=== PATIENT | female | born 1960 | race Caucasian/White ===

== ENCOUNTER 2019-03-10 09:42 | Observation (INO) ==
[2019-03-10] MEDS ORDERED: *HR* Promethazine 25 MG/ML VIAL IM ONE (10:08)
[2019-03-10] MEDS ORDERED: Ketorolac 30 MG/ML VIAL IM ONE (10:08)
[2019-03-10] MEDS ORDERED: *HR* FentaNYL (PF) 100 MCG/2 ML VIAL IM ONE (10:08)
--- NOTE | 2019-03-10 10:10 | Emergency Department Note ---
Disposition Clinical Impression: Renal colic, bilateral, Pyelonephritis Disposition: Admitted As Inpatient Condition: Good Time of Disposition: 12:56 General Adult HPI - General Chief complaint: ED Abdominal Pain Stated complaint: "kidney stones" Time Seen by Provider: 03/10/19 10:07 Source: patient Mode of arrival: ambulatory Limitations: no limitations Nursing Notes Reviewed: Yes Vital Signs Reviewed: Yes - History of Present Illness HPI Narrative: 58-year-old female with history of multiple kidney stents who presents emergency Department with complaints of when a half weeks' time of bilateral flank pain. The patient states she thinks she passed multiple kidney stones over the last week. She has attempted to get in with urology but has been unsuccessful. The patient notes that she continues to have straining with urination and feels burning with urination and is concerned she has an obstructing stone at this time. She has previously required basket retreival and lithotripsy. She otherwise notes nausea and flank pain and some episodes of vomiting but denies any fever, chest pain, shortness of breath, diarrhea. Pain Scale: 4 - Related Data Home Medications Medication Instructions Recorded Confirmed Albuterol Sulfate [Proventil 90 mcg IH Q4HR PRN 10/25/15 03/10/19 Inhaler] Biotin [Ian Biotin] 10,000 mcg PO 1700 10/25/15 03/10/19 Cetirizine HCl [Zyrtec] 10 mg PO 1700 PRN 10/25/15 03/10/19 Citalopram [CeleXA] 30 mg PO 1700 10/25/15 03/10/19 SUMAtriptan Succinate [Imitrex] 100 mg PO AD PRN 10/25/15 03/10/19 amLODIPine [Norvasc] 5 mg PO 1700 10/25/15 03/10/19 Gabapentin [Neurontin] 300 mg PO 1700 PRN 03/10/19 03/10/19 Multivitamin [One Daily 1 tab PO 1700 03/10/19 03/10/19 Multivitamin] Rosuvastatin Calcium [Crestor] 20 mg PO QAM 03/10/19 03/10/19 Turmeric Root Extract [Turmeric 500 mg PO 1700 03/10/19 03/10/19 Curcumin] Allergies Allergy/AdvReac Type Severity Reaction Status Date / Time prochlorperazine AdvReac burning Verified 03/10/19 13:51 [From Compazine] urination anesthesia AdvReac Vomiting Uncoded 03/10/19 13:51 Review of Systems: ROS per history of present illness, all other systems reviewed and negative or normal. All systems ED: reviewed and negative except as stated. Review of Systems: As Per HPI Past Medical History - Past Medical History Medical history: Reports: asthma, hyperlipidemia, hypertension, kidney stones, migraine Surgical history: Reports: knee replacement, orthopedic, other, other Psychiatric history: Reports: anxiety, depression - Social History Smoking Status: Never smoker Smokeless Tobacco Status: No Alcohol use: Reports: none Drug use: Reports: none Physical Exam General: Conversant. No apparent distress. Follow commands. Appears stated age. Neck: No JVD. Trachea midline. Neck supple. Eyes: PERRL. No scleral icterus. HENT: Normocephalic and atraumatic. Moist mucus membranes. Cardiovascular: Regular rate and rhythm. Normal S1 and S2. No murmurs appreciated. Normal capillary refill. Extremities well perfused with 2+ distal pulses bilaterally. No edema. Pulmonary: Normal and equal breath sounds bilaterally, anteriorly and posteriorly. No wheezes, rales, or rhonchi. Not in respiratory distress. Speaks in full sentences. Abdomen: Soft, nondistended. Diffuse tenderness. There is bilateral CVA tenderness. No rigidity or guarding. No rash on the flank. Neuro: Alert and oriented x3. No slurred speech. No focal deficits noted. Skin: No rashes noted on visualized skin. Musculoskeletal: No bony abnormalities visualized. Moves all extremities. Psych: Normal mood. Pleasant. Makes appropriate eye contact. Course Vital Signs Temperature 98.1 F 03/10/19 10:02 Pulse Rate 80 03/10/19 10:02 Respiratory Rate 16 03/10/19 10:02 Blood Pressure 118/87 03/10/19 10:02 O2 Sat by Pulse Oximetry 94 03/10/19 10:02 Temperature 98.0 F 03/10/19 18:56 Pulse Rate 74 03/10/19 18:56 Respiratory Rate 16 03/10/19 18:56 Blood Pressure 138/86 03/10/19 18:56 O2 Sat by Pulse Oximetry 96 03/10/19 18:56 Oxygen Delivery Oxygen Delivery Room Air Medical Decision Making - [facility] Narrative Medical decision making narrative: 58-year-old female with history of multiple kidney stents who presents the emergency department with plans of bilateral flank pain. The patient also notes burning with urination and passage of multiple stones. On arrival patient has no fever, not tachycardic, not hypotensive. The patient has bilateral CVA tenderness. X-ray evaluation shows no significant leukocytosis, anemia or acute kidney injury. CT abdomen/pelvis shows bilateral nonobstructing stones with no hydronephrosis. There is mild perinephric stranding in the left kidney from prior. Urinalysis does show evidence of urinary tract infection. Given concern for pyelonephritis the patient was given IV Rocephin here in the emergency department. She has not been able to tolerate by mouth and feels that she has failed outpatient management therefore she was admitted here to the hospital. Discussed case with on-call hospitalist Dr. Nayak who agrees with plan for admission and accepts the patient to the inpatient service. Patient agrees with and understands course of treatment plan including plan for admission. All questions answered. - Medical Records Medical records reviewed: Yes I reviewed the patient's medical records. - Lab Data Lab results reviewed: Yes I reviewed the patient's lab results. Result diagrams: 03/10/19 10:40 03/10/19 10:40 Lab Results 03/10/19 03/10/19 03/10/19 Range/Units 10:21 10:21 10:40 WBC 7.6 (4.3-11.1) K/mcL RBC 4.82 (3.82-4.97) M/mcL Hgb 14.5 (11.5-15.4) g/dL Hct 43.9 (35.3-44.9) % MCV 91.1 (83.0-100.0) fL MCH 30.1 (28.0-33.3) pg MCHC 33.0 (31.6-35.5) g/dL RDW 13.3 (11.5-14.5) % Plt Count 206 (140-400) K/mcL MPV 10.7 (9.4-12.4) fL Immature Gran % 0.4 (0-4) % Seg Neutrophils % 59.6 % Lymphocytes % 21.5 % Monocytes % 15.9 % Eosinophils % 1.9 % Basophils % 0.7 % Neutrophils # 4.5 (1.6-8.9) K/mcL Lymphocytes # 1.6 (0.6-4.6) K/mcL Monocytes # 1.2 (0.0-1.3) K/mcL Eosinophils # 0.1 (0.0-0.6) K/mcL Basophils # 0.1 (0.0-0.2) K/mcL Sodium (136-145) mEq/L Potassium (3.5-5.1) mEq/L Chloride (98-107) mEq/L Carbon Dioxide (23-29) mEq/L BUN (6-20) mg/dL Creatinine (0.60-1.20) mg/dL Est GFR ( Amer) (> 60) Est GFR (Non-Af Amer) (> 60) BUN/Creatinine Ratio (6-26) Glucose (70-105) mg/dL Calculated Osmolality (280-300) Calcium (8.6-10.3) mg/dL Urine Color Yellow (Yellow) Urine Clarity Slightly Cloudy A (Clear) Urine pH 5.5 (5.0-8.0) pH Units Ur Specific [place] 1.020 (1.010-1.025) Urine Protein 100 H (Neg-Trace) mg/dL Urine Glucose (UA) Normal (Normal) mg/dL Urine Ketones Negative (Negative) mg/dL Urine Blood Moderate H (Negative) Urine Nitrite Positive A (Negative) Urine Bilirubin Negative (Negative) Urine Urobilinogen Normal (Normal) mg/dL Ur Leukocyte Esterase Large H (Negative) Urine Microscopic RBC 5-15 H (0-3) per hpf Urine Microscopic WBC 50-100 H (0-3) per hpf Ur Squamous Epith Cells Few (None-Few) per lpf Ur Renal Epithelial Cell Few (None-Few) per hpf Urine Bacteria Moderate H (None-Few) per hpf Ur Culture Indicated? YES A (NO) Urine Test Negative (Negative) 03/10/19 Range/Units 10:40 WBC (4.3-11.1) K/mcL RBC (3.82-4.97) M/mcL Hgb (11.5-15.4) g/dL Hct (35.3-44.9) % MCV (83.0-100.0) fL MCH (28.0-33.3) pg MCHC (31.6-35.5) g/dL RDW (11.5-14.5) % Plt Count (140-400) K/mcL MPV (9.4-12.4) fL Immature Gran % (0-4) % Seg Neutrophils % % Lymphocytes % % Monocytes % % Eosinophils % % Basophils % % Neutrophils # (1.6-8.9) K/mcL Lymphocytes # (0.6-4.6) K/mcL Monocytes # (0.0-1.3) K/mcL Eosinophils # (0.0-0.6) K/mcL Basophils # (0.0-0.2) K/mcL Sodium 137 (136-145) mEq/L Potassium 3.5 (3.5-5.1) mEq/L Chloride 101 (98-107) mEq/L Carbon Dioxide 25 (23-29) mEq/L BUN 8 (6-20) mg/dL Creatinine 0.84 (0.60-1.20) mg/dL Est GFR ( Amer) > 60 (> 60) Est GFR (Non-Af Amer) > 60 (> 60) BUN/Creatinine Ratio 10 (6-26) Glucose 118 H (70-105) mg/dL Calculated Osmolality 283 (280-300) Calcium 9.1 (8.6-10.3) mg/dL Urine Color (Yellow) Urine Clarity (Clear) Urine pH (5.0-8.0) pH Units Ur Specific [place] (1.010-1.025) Urine Protein (Neg-Trace) mg/dL Urine Glucose (UA) (Normal) mg/dL Urine Ketones (Negative) mg/dL Urine Blood (Negative) Urine Nitrite (Negative) Urine Bilirubin (Negative) Urine Urobilinogen (Normal) mg/dL Ur Leukocyte Esterase (Negative) Urine Microscopic RBC (0-3) per hpf Urine Microscopic WBC (0-3) per hpf Ur Squamous Epith Cells (None-Few) per lpf Ur Renal Epithelial Cell (None-Few) per hpf Urine Bacteria (None-Few) per hpf Ur Culture Indicated? (NO) Urine Test (Negative) - Radiology Data Radiology results reviewed: Yes I reviewed the patient's radiology results. Abdomen/Pelvis CT 03/10/19 10:28 IMPRESSION: Bilateral nonobstructing renal calculi of varying size. No hydronephrosis. Slight to mild perinephric stranding about the left kidney new from the prior study. No ureteral calculus. Fibroid uterus unchanged. Sigmoid diverticulosis without diverticulitis. D/ / Julian Allan MD / Julian Allan MD Interpreting Provider: Julian Allan MD Attestation Statement - Attestation Attestation: I, Juancarlos Lawrence, examined this patient and my medical decision-making was reviewed with the INTERNIST MEDICAL DOCTOR MD/PA/Advanced Practice Nurse/Resident Physician. I agree with the documented findings, disposition and treatment plan as described except to the extent set forth below. 58-year-old female presents emergency department for evaluation of possible kidney stones. Patient reports she has a history of kidney stones and likely pass on over the past week. She now reports bilateral flank pain. On physical exam she has CVA tenderness on the right. Urinalysis shows urinary tract infection. CT does not show an obstructing stone however she does have perinephric stranding. Patient will be admitted as possible pyelonephritis. She states she has been unable not tolerating by mouth intake well over the past few days. Patient given antibiotics in the emergency department.
[2019-03-10] MEDS ORDERED: Ondansetron 4 MG/2 ML VIAL IVP ONE (10:28)
[2019-03-10] MEDS ORDERED: Ketorolac 15 MG/ML VIAL IVP ONE (10:28)
[2019-03-10] MEDS ORDERED: 0.9 % Sodium Chloride 1,000 ML IVC STA (10:28)
[2019-03-10 10:42] LABS: Bilirubin,Urine Negative (Negative); Blood,Urine Moderate (Negative); Clarity,Urine Slightly Cloudy (Clear); Color,Urine Yellow (Yellow); Glucose,Urine (UA) Normal (Normal); Ketones,Urine Negative (Negative); Leukocyte Esterase,Urine Large (Negative); Nitrite,Urine Positive (Negative); PH,Urine 5.5 pH Units (5.0-8.0); Protein,Urine 100 mg/dL (Neg-Trace); Urobilinogen,Urine Normal (Normal)
[2019-03-10 10:54] LABS: Squamous Epithelial Cell,Urine Few per lpf (None-Few); WBC,Urine 50-100 per hpf (0-3)
[2019-03-10 10:55] LABS: Bacteria,Urine Moderate per hpf (None-Few); Renal Epithelial Cells,Urine Few per hpf (None-Few)
[2019-03-10 11:12] LABS: Basophils # 0.1 K/mcL (0.0-0.2); Basophils % 0.7 %; Eosinophils # 0.1 K/mcL (0.0-0.6); Eosinophils % 1.9 %; Hematocrit 43.9 % (35.3-44.9); Hemoglobin 14.5 g/dL (11.5-15.4); Immature Granulocytes % 0.4 % (0-4); Lymphocytes # 1.6 K/mcL (0.6-4.6); Lymphocytes % 21.5 %; Mean Corpuscular Hemoglobin 30.1 pg (28.0-33.3); Mean Corpuscular Volume 91.1 fL (83.0-100.0); Mean Platelet Volume 10.7 fL (9.4-12.4); Monocytes # 1.2 K/mcL (0.0-1.3); Monocytes % 15.9 %; Neutrophils # 4.5 K/mcL (1.6-8.9); Platelet Count 206 K/mcL (140-400); Red Blood Count 4.82 M/mcL (3.82-4.97); Red Cell Distribution Width 13.3 % (11.5-14.5); Segmented Neutrophils % 59.6 %; White Blood Count 7.6 K/mcL (4.3-11.1)
[2019-03-10 11:29] LABS: BUN/Creatinine Ratio 10 (6-26); Blood Urea Nitrogen 8 mg/dL (6-20); Calcium 9.1 mg/dL (8.6-10.3); Carbon Dioxide 25 mEq/L (23-29); Chloride 101 mEq/L (98-107); Glucose 118 mg/dL (70-105); Osmolality,Calculated 283 (280-300); Potassium 3.5 mEq/L (3.5-5.1); Sodium 137 mEq/L (136-145); eGFR For African Americans > 60 (> 60); eGFR For Non-African Americans > 60 (> 60)
[2019-03-10] MEDS ORDERED: Morphine Sulfate Immed Rel 30 MG TABLET PO ONE (12:23)
[2019-03-10] MEDS ORDERED: cefTRIAXone 1,000 MG in Water for inj. (sterile) 10 ML IVP ONE (13:07)
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
[2019-03-10] MEDS ORDERED: *HR* OxyCODONE Immed Rel 5 MG TABLET PO PRN (13:58)
[2019-03-10] MEDS ORDERED: Acetaminophen 325 MG TABLET PO PRN (13:58)
[2019-03-10] MEDS ORDERED: Naloxone 0.4 MG/ML INJ IVP PRN (13:58)
[2019-03-10] MEDS ORDERED: Ondansetron 4 MG/2 ML VIAL IVP PRN (13:58)
[2019-03-10] MEDS: *HR* Heparin 5,000 UNIT/ML VIAL SQ SCH (18:18)
[2019-03-10] MEDS: *HR* HYDROcodone/Acet 5/325 mg TABLET PO PRN (21:16)
[2019-03-11 05:51] LABS: Basophils # 0.1 K/mcL (0.0-0.2); Eosinophils # 0.2 K/mcL (0.0-0.6); Eosinophils % 2.6 %; Hematocrit 39.7 % (35.3-44.9); Immature Granulocytes % 0.3 % (0-4); Lymphocytes # 1.5 K/mcL (0.6-4.6); Lymphocytes % 24.3 %; Mean Corpuscular HGB Conc 32.5 g/dL (31.6-35.5); Mean Corpuscular Hemoglobin 30.1 pg (28.0-33.3); Mean Corpuscular Volume 92.8 fL (83.0-100.0); Mean Platelet Volume 10.8 fL (9.4-12.4); Monocytes # 0.9 K/mcL (0.0-1.3); Monocytes % 14.2 %; Neutrophils # 3.6 K/mcL (1.6-8.9); Platelet Count 192 K/mcL (140-400); Red Blood Count 4.28 M/mcL (3.82-4.97); Red Cell Distribution Width 13.2 % (11.5-14.5); Segmented Neutrophils % 57.6 %; White Blood Count 6.3 K/mcL (4.3-11.1)
[2019-03-11 05:52] LABS: Hemoglobin 12.9 g/dL (11.5-15.4)
[2019-03-11] MEDS: *HR* Heparin 5,000 UNIT/ML VIAL SQ SCH (05:55)
[2019-03-11 06:14] LABS: BUN/Creatinine Ratio 11 (6-26); Blood Urea Nitrogen 8 mg/dL (6-20); Calcium 8.8 mg/dL (8.6-10.3); Carbon Dioxide 24 mEq/L (23-29); Chloride 104 mEq/L (98-107); Glucose 106 mg/dL (70-105); Magnesium 2.2 mg/dL (1.6-2.6); Osmolality,Calculated 289 (280-300); Potassium 3.4 mEq/L (3.5-5.1); Sodium 140 mEq/L (136-145); eGFR For African Americans > 60 (> 60); eGFR For Non-African Americans > 60 (> 60)
[2019-03-11] MEDS: *HR* HYDROcodone/Acet 5/325 mg TABLET PO PRN (10:11)
[2019-03-11] MEDS ORDERED: 0.9 % Sodium Chloride 1,000 ML IVC SCH (10:45)
[2019-03-11 11:16] VITALS: BP 108/76
[2019-03-11] MEDS ORDERED: cefTRIAXone 1,000 MG in Water for inj. (sterile) 10 ML IVP SCH (12:00)
[2019-03-11] MEDS ORDERED: cefTRIAXone 1,000 MG in Water for inj. (sterile) 10 ML IVP ONE (12:56)
--- NOTE | 2019-03-11 13:54 | Discharge Summary ---
- NOTES TO OUTPATIENT PROVIDER Notes to Outpatient Provider: hx of kidney stones passed a kidney stone on 03/09/2019 - we will need follow-up with urology culture preliminary grew gram- negative rods we will continue with Omnicef Orders not resulted at time of discharge: Pending orders 03/10/19 10:21 Culture,Urine [RM] Stat Date of Encounter: 03/11/19 Time of Encounter: 13:51 - Discharge Diagnosis (1) Nephrolithiasis Priority: Primary Status: Acute (2) HTN (hypertension) Priority: Secondary Status: Chronic Qualifiers: Hypertension type: essential hypertension Qualified Code(s): I10 - Essential (primary) hypertension (3) HLD (hyperlipidemia) Priority: Secondary Status: Chronic Qualifiers: Hyperlipidemia type: mixed hyperlipidemia Qualified Code(s): E78.2 - Mixed hyperlipidemia (4) Acute pyelonephritis Priority: Primary Status: Acute Hospital course: Ms. Gautam is a 58 year old female astragal history of hypertension hyperlipidemia kidney stones presented with complaints of flank pain starting 03/01/19 she states that flank pain with bilaterally consistent with history of previous kidney stone. She did pass a stone later that day however her symptoms continue to persist. On presentation she had flank pain and nausea and decreased appetite urinary frequency and urgency. Patient did complain of subjective fevers and sweats prior to presentation. She underwent a CT of her abdomen which showed slight mild stranding around the left kidney unchanged fibroid uterus and diverticulosis. Initiated on Rocephin as well as pain medications and IV fluids. Overnight she did not have any fevers no white count today she was able to tolerate oral intake. Patient states that urinary symptoms have improved denies any hematuria. Preliminary culture grew gram- negative rods Patient will be discharged home with 7 day course of Omnicef- advised patient to follow-up with PCP as well as urology as outpatient. Patient verbalizes understanding currently she is hemodynamically stable this time and ready for discharge. - Time Spent with Patient Total time spent providing and/or coordinating discharge services: - Discharge Medications Prescriptions: New Cefdinir [Omnicef] 300 mg PO BID 7 Days #14 capsule Continued Citalopram [CeleXA] 30 mg PO 1700 amLODIPine [Norvasc] 5 mg PO 1700 Albuterol Sulfate [Proventil Inhaler] 90 mcg IH Q4HR PRN PRN Reason: Shortness Of Breath Cetirizine HCl [Zyrtec] 10 mg PO 1700 PRN PRN Reason: Allergy Symptoms SUMAtriptan Succinate [Imitrex] 100 mg PO AD PRN PRN Reason: Migraine Headache Biotin [Ian Biotin] 10,000 mcg PO 1700 Multivitamin [One Daily Multivitamin] 1 tab PO 1700 Rosuvastatin Calcium [Crestor] 20 mg PO QAM Turmeric Root Extract [Turmeric Curcumin] 500 mg PO 1700 Gabapentin [Neurontin] 300 mg PO 1700 PRN PRN Reason: SHOULDER PAIN Home Medications: Albuterol Sulfate [Proventil Inhaler] 90 mcg IH Q4HR PRN 10/25/15 [History] Biotin [Ian Biotin] 10,000 mcg PO 1700 10/25/15 [History] Cetirizine HCl [Zyrtec] 10 mg PO 1700 PRN 10/25/15 [History] Citalopram [CeleXA] 30 mg PO 1700 10/25/15 [History] SUMAtriptan Succinate [Imitrex] 100 mg PO AD PRN 10/25/15 [History] amLODIPine [Norvasc] 5 mg PO 1700 10/25/15 [History] Gabapentin [Neurontin] 300 mg PO 1700 PRN 03/10/19 [History] Multivitamin [One Daily Multivitamin] 1 tab PO 1700 03/10/19 [History] Rosuvastatin Calcium [Crestor] 20 mg PO QAM 03/10/19 [History] Turmeric Root Extract [Turmeric Curcumin] 500 mg PO 1700 03/10/19 [History] Cefdinir [Omnicef] 300 mg PO BID 7 Days #14 capsule 03/11/19 [Rx] Allergies/Adverse Reactions: Allergy/AdvReac Type Severity Reaction Status Date / Time prochlorperazine AdvReac burning Verified 03/10/19 13:51 [From Compazine] urination anesthesia AdvReac Vomiting Uncoded 03/10/19 13:51 Date of admission: 03/10/19 13:34 Primary care physician: Anila Mcneal [employer] Discharging clinician: Mohini Jimenez Anticipated date of discharge: 03/11/19 - Constitutional Vitals: Temp Pulse Resp BP Pulse Ox 97.7 F 58 16 108/76 91 03/11/19 11:11 03/11/19 11:11 03/11/19 11:11 03/11/19 11:11 03/11/19 11:11 Exam: Gen.: Vitals noted. No acute distress. AAOx3, resting comfortably in bed. HEENT: PERRL/EOMI, oropharynx clear, Normocephalic, atraumatic, MMM Cardiac: RRR, no murmur, +S1/S2, Trace BLE edema Pulmonary: CTA bilaterally, no wheezes, rales or rhonchi, equal chest expansion, unlabored breathing Abdomen: soft, mild tenderness to palpation Back: Mild tenderness CVA bilaterally Skin: warm and dry, no visible lesions. MSK: ROM intact, no joint swelling noted, gait no assessed while in bed. Non tender calf or clubbing Neuro: A&Ox3, moves all extremities, no focal deficits, sensation intact, Psych: Appropriate mood and behavior, AOx3 - Patient Status Disposition: Home, Self-Care Condition: Good Functional capacity at discharge: independent ambulation Overall status at discharge: patient is back to baseline - Discharge Instructions Instructions: Urinary Tract Infection in Women (DC) Follow Up With: Anila Mcneal, [employer] [Primary Care Provider] - - Diet and Activity Activity: increase activity as tolerated Diet: advance to your usual diet
== END 2019-03-11 15:58 | disposition home or self-care (01) ==
LOC: 3BNU 09:42 → EMEROOARM 09:42 → 3BNU 14:27
PROVIDERS: ADMIT Internal Medicine; ATTEND Internal Medicine